=== PATIENT | female | born 1965 | race Caucasian/White ===

== ENCOUNTER 2024-08-11 17:09 | Outpatient (CLI) | payer OTHER, SELFPAY ==
--- NOTE | 2024-08-11 17:30 | CRLHL7_ITS ---
For Patients: As a result of the Century Cures Act, medical imaging exams and procedure reports are released immediately into your electronic medical record. You may view this report before your referring provider. If you have questions, please contact your health care provider. INDICATION: Low back pain. TECHNIQUE: Noncontrast sagittal and axial T1, T2, and sagittal STIR sequences are provided. No comparisons. FINDINGS: The overall stature, alignment and intrinsic marrow signal of the lumbar spine is within normal limits. Conus is normal. L1-2, L2-3: Unremarkable. L3-4: Minor broad-based posterior disc bulge results in no central canal or foraminal narrowing. L4-5: Mild broad-based posterior disc bulge with a left intra foraminal component results in mild left and no right foraminal narrowing. No central canal narrowing. L5-S1: Mild posterior central disc protrusion results in no central canal or foraminal narrowing. IMPRESSION: 1. Mild left L4-5 foraminal narrowing. 2. Milder degenerative changes within the remainder of the lumbar spine as outlined above. Dictated by Rafy Angelo MD @ 08/12/2024 1:16:22 PM (Electronically Signed)
== END 2024-08-11 17:10 | disposition home or self-care (01) ==
PROVIDERS: PCP Family Medicine; Visit Provider Family Medicine
DX: M54.50 Low back pain, unspecified (principal); M51.26 Other intervertebral disc displacement, lumbar region; M54.16 Radiculopathy, lumbar region
CPT/HCPCS: 72148

== ENCOUNTER 2024-10-11 13:52 | Outpatient (CLI) | payer OTHER, SELFPAY ==
--- NOTE | 2024-10-11 15:00 | CRLHL7_ITS ---
For Patients: As a result of the Century Cures Act, medical imaging exams and procedure reports are released immediately into your electronic medical record. You may view this report before your referring provider. If you have questions, please contact your health care provider. BILATERAL DIGITAL SCREENING MAMMOGRAM WITH COMPUTER-AIDED DETECTION AND TOMOSYNTHESIS CLINICAL HISTORY: Routine screening exam. COMPARISON: Mammogram 09/16/2021 TECHNIQUE: Digital mammogram in CC and MLO projections including computer-aided detection (CAD) and tomosynthesis. BREAST COMPOSITION: There are scattered areas of fibroglandular density. FINDINGS: RIGHT Breast: There is an asymmetry in the medial breast, middle depth. LEFT Breast: No suspicious findings. IMPRESSION: RIGHT breast asymmetry. RECOMMENDATIONS: Additional mammographic views of the RIGHT breast including 90 degree lateral and spot compression CC. RIGHT breast ultrasound may also be required. A member of the breast care team will contact the patient to arrange for this additional study. BI-RADS Category 0: Incomplete: Need Additional Imaging Evaluation Dictated by Jessie Jimenez MD @ 10/17/2024 8:59:58 PM Dictated by: Jessie Jimenez MD @ 10/17/2024 21:00:19 (Electronically Signed)
== END 2024-10-11 13:53 | disposition home or self-care (01) ==
LOC: MAMMO 13:53
PROVIDERS: PCP Family Medicine; Visit Provider Family Medicine
DX: Z12.31 Encounter for screening mammogram for malignant neoplasm of breast (principal); N63.10 Unspecified lump in the right breast, unspecified quadrant
CPT/HCPCS: 77063; 77067; 80048; 80061; 84460; 85025

== ENCOUNTER 2024-10-28 07:25 | Outpatient (CLI) | payer OTHER, SELFPAY ==
--- NOTE | 2024-10-28 07:45 | CRLHL7_ITS ---
For Patients: As a result of the Cures Act, medical imaging exams and procedure reports are released immediately into your electronic medical record. You may view this report before your referring provider. If you have questions, please contact your health care provider. DIGITAL RIGHT BREAST ADDITIONAL VIEWS WITH TOMOSYNTHESIS, 10/28/2024 RIGHT BREAST ULTRASOUND, 10/28/2024 CLINICAL HISTORY: RIGHT breast mass/asymmetry. COMPARISON: 10/11/2024. TECHNIQUE: Digital RIGHT mammogram in 2 projections. Tomosynthesis was used in this interpretation. Real-time ultrasound imaging of RIGHT breast with imaging documentation. Scanning was performed by both the technologist and the radiologist. BREAST COMPOSITION: There are scattered areas of fibroglandular density. FINDINGS: Additional mammogram images submitted. Small nodular density again noted without architectural distortion or suspicious calcifications. No adenopathy. Targeted RIGHT breast ultrasound performed. Anechoic cyst is present at 2 o`clock 3 cm from the nipple measuring 8 x 3 x 7 millimeters. No suspicious masses. Normal fibroglandular tissue elsewhere. IMPRESSION: Benign cyst measuring 8 millimeters at 2 o`clock 3 cm from the nipple right breast. No evidence of malignancy. RECOMMENDATIONS: Routine screening mammography. A lay language report of this examination will be provided to the patient. BI-RADS Category 2. Benign. Dictated by Luis Chow MD @ 10/28/2024 10:26:21 AM BURT/donna CLARKE/Dictated by: Luis Chow MD @ 10/28/2024 10:26:00 AM (Electronically Signed)
--- NOTE | 2024-10-28 08:15 | CRLHL7_ITS ---
For Patients: As a result of the Century Cures Act, medical imaging exams and procedure reports are released immediately into your electronic medical record. You may view this report before your referring provider. If you have questions, please contact your health care provider. Please see additional views RIGHT breast for combined report. DM:donna 10/28/2024 DW/Dictated by: Luis Chow MD @ 10/28/2024 10:26:00 AM (Electronically Signed)
== END 2024-10-28 07:26 | disposition home or self-care (01) ==
LOC: MAMMO 07:28
PROVIDERS: PCP Family Medicine; Visit Provider Family Medicine
DX: N63.10 Unspecified lump in the right breast, unspecified quadrant (principal); R92.8 Other abnormal and inconclusive findings on diagnostic imaging of breast
CPT/HCPCS: 76642; 77065; G0279